=== PATIENT | male | born 1980 | race Caucasian/White ===

== ENCOUNTER 2023-12-06 10:48 | Emergency (ER) | payer MEDICARE, SELFPAY ==
[2023-12-06 10:50] VITALS: BP 131/75
[2023-12-06 11:04] VITALS: BMI 32.6
--- NOTE | 2023-12-06 11:05 | ED.GENMED ---
History of Present Illness
General
Chief Complaint: Flank Pain
Source: patient
Exam Limitations: none
Time Seen by Provider: 12/06/23 10:54
History of Present Illness
History of Present Illness:
43-year-old male presents with left flank pain intermittently over the past several days. There is associated dysuria. He also notes cloudy urine. No fevers chills nausea vomiting. No prior history of kidney stone. No other complaints at this
time
Phy Exam
Physical Exam
Physical Exam:
General: Well-appearing male no acute respiratory distress
HEENT: Normocephalic atraumatic
Heart: Regular rate and rhythm no murmurs
Lungs: Clear no wheeze
Abdomen is soft nontender nondistended but mild left-sided costovertebral angle tenderness
Extremities: No cyanosis
Course
Orders/Labs/Results
Orders:
Orders
12/06/23 11:00
Complete Blood Count/With Diff Urgent
Comprehensive Metabolic Panel Urgent
12/06/23 11:01
CT Abd/pel Without Iv Or Oral Urgent
Comment:
Reason For Exam: left flank pain
12/06/23 12:00
Urinalysis Reflex To Culture Urgent
Date Specimen was Collected: 12/06/23
Time Specimen was Collected: 11:02
Urine Microscopic Reflex Cult Urgent
12/06/23 13:25
CT Abd/Pel (IV only)-DH only Urgent
Reason For Exam: left renal mass
Abnormal Lab Results
12/06/23 12/06/23
11:00 12:00
RBC 4.64 L 10^6/uL
(4.70-6.10)
MPV 10.7 H fL
(7.4-10.4)
BUN 26 H mg/dl
(9-20)
Urine Ketones 2+ A
(Negative)
Urine Bilirubin 1+ A
(Negative)
Urine Urobilinogen 2+ A
(Neg - 1+)
Leukocyte Esterase Rfl Trace A
(Negative)
Urine Bacteria (Reflex) Few A
(Negative)
12/06/23 11:00
12/06/23 11:00
Vital Signs
Initial and Last Documented VS:
Initial Vital Signs
Temp Pulse Resp BP Pulse Ox
98.5 F 65 18 131/75 99
12/06/23 10:50 12/06/23 10:50 12/06/23 10:50 12/06/23 10:50 12/06/23 10:50
Last Documented Vital Signs
Temp Pulse Resp BP Pulse Ox
98.5 F 65 18 115/63 97
12/06/23 10:50 12/06/23 10:50 12/06/23 10:50 12/06/23 16:00 12/06/23 16:00
MDM/Problems Addressed
Differential Diagnosis Includes:
Left flank pain. Consider renal colic versus pyelonephritis musculoskeletal flank pain versus UTI
Patient is fairly healthy otherwise he does have history of gastric bypass. Will order labs and urinalysis. CT of abdomen pending as well
Considered IV pain medicine however patient appears comfortable. Held off on medicating at this point
*Critical Care Note
Total Time (30-74mins, 75-104mins- exclusive of procedures): Not Applicable
Update Note
Update Note:
Initial CT shows left renal mass suspicious for renal cell carcinoma. Spoke with urology who recommended CT of the abdomen pelvis with and without IV contrast for further detail. Workup furthermore would be proceeded as an outpatient. Patient
made aware of these findings. Waiting official report for CT with IV contrast
ED Attending Note
-
Portions of this chart may have been created with voice recognition software.� Occasional wrong word or��sound alike� substitutions may have occurred due to the inherent limitations of voice recognition software.
Discharge Plan
Departure
Patient Disposition: Home (Routine Discharge)
Date of Disposition: 12/06/23
Time of Disposition: 16:16
Patient with high blood pressure during this ER visit?: No
Discharge Problem:
Left renal mass
Referrals:
Alfonso Archer MD [Active] -
Osman Rocha MD [Family Provider] -
Activity Restrictions/Additional Instructions:
You may use ibuprofen or Tylenol for pain. Drink plenty of fluids. Please follow-up with urology for next available appointment for further evaluation
Interventions
Interventions:
*Risk Screen - Suicide Last Done: 12/06/23 10:50
*General Assessment Last Done: 12/06/23 10:50
*Neglect/Abuse Screening Last Done: 12/06/23 10:50
ED- Fall Risk Assessment Last Done: 12/06/23 11:04
*ED COVID-19 Vaccine History Last Done: 12/06/23 10:50
*Nursing Disposition Last Done: 12/06/23 16:23
RR-Rlkvhd-Dqryhvsiin Assessment Last Done: 12/06/23 11:04
ED-Male Genitourinary Assessment Last Done: 12/06/23 11:04
Discharge Date and Time
Discharge Date/Time: 12/06/23 16:23
Print Language: K[place]
[2023-12-06 11:25] LABS: % Basophils 0.4 % (0-2); % Eosinophils 2.2 % (0-6); % Immature Granulocytes 0.4 % (0-0.5); % Lymphocytes 25.8 % (20.5-51.1); % Monocytes 5.4 % (1.7-9.3); % Neutrophils 65.8 % (42.2-75.2); Absolute Eosinophils 0.2 10^3/uL (0-0.7); Absolute Lymphocytes 1.8 10^3/uL (1.2-3.4); Absolute Monocytes 0.4 10^3/uL (0.1-0.6); Absolute Neutrophils 4.5 10^3/uL (1.4-6.5); Hematocrit 40.3 % (39.0-52.0); Hemoglobin 14.4 g/dL (13.0-18.0); Mean Corp Hgb Conc. 35.7 g/dL (33.0-37.0); Mean Corpuscular Volume 86.9 fL (80.0-94.0); Mean Platelet Volume 10.7 fL (7.4-10.4); Nucleated Red Blood Cells % 0 % (-); Platelet Count 163 10^3/uL (130-400); Red Blood Cell Count 4.64 10^6/uL (4.70-6.10); Red Cell Dist. Width 12.5 % (11.5-14.5); White Blood Cell Count 6.8 10^3/uL (4.8-10.8)
[2023-12-06 11:34] LABS: ALT (SGPT) 17 U/L (0-50); AST (SGOT) 22 U/L (17-59); Alkaline Phosphatase 52 U/L (38-126); Blood Urea Nitrogen 26 mg/dl (9-20); Calcium 9.5 mg/dl (8.4-10.2); Carbon Dioxide 28 mmol/L (22-30); Chloride 105 mmol/L (98-107); Estimated Creatinine Clearance 122 ml/min; Glucose 82 mg/dl (70-99); Potassium 4.3 mmol/L (3.5-5.1); Sodium 141 mmol/L (135-145); Total Bilirubin 1.2 mg/dl (0.2-1.3); Total Protein 6.3 g/dl (6.3-8.2); eGFR > 60.00
[2023-12-06 12:14] LABS: Urine Albumin Trace (Neg - Trace); Urine Bilirubin 1+ (Negative); Urine Character Clear (Clear); Urine Color Yellow; Urine Glucose Negative (Negative); Urine Ketone 2+ (Negative); Urine Leukocyte Trace (Negative); Urine Nitrite Negative (Negative); Urine Occult Blood Negative (Negative); Urine Urobilinogen 2+ (Neg - 1+)
[2023-12-06 12:24] LABS: Urine Mucus Moderate; Urine Squamous Cell 0-2 /LPF (Few)
[2023-12-06 12:25] LABS: Urine Bacteria Few (Negative); Urine Red Blood Cell 0-2 /HPF (0-2); Urine White Cell 0-2 /HPF (0-5)
[2023-12-06 13:17] VITALS: BP 112/73
[2023-12-06 15:20] VITALS: BP 114/74
[2023-12-06 16:00] VITALS: BP 115/63
== END 2023-12-06 16:23 | disposition home or self-care (01) ==
LOC: EMR 10:48
PROVIDERS: Physician Assistant; EMERGENCY PHYSICIAN Emergency Medicine; FAMILY PHYSICIAN Internal Medicine
DX: N28.89 Other specified disorders of kidney and ureter (principal)
CPT/HCPCS: 99285; 74176; 74177; 80053; 81003; 81015; 85025; Q9967

== ENCOUNTER 2024-01-16 06:12 | Day surgery (SDC) | payer OTHER, SELFPAY ==
[2024-01-13 08:31] VITALS: BMI 32.7
[2024-01-13 10:44] LABS: Hemoglobin 13.5 g/dL (13.0-18.0); Mean Corp Hgb Conc. 35.5 g/dL (33.0-37.0); Mean Corpuscular Volume 87.2 fL (80.0-94.0); Mean Platelet Volume 10.9 fL (7.4-10.4); Platelet Count 166 10^3/uL (130-400); Red Blood Cell Count 4.36 10^6/uL (4.70-6.10); White Blood Cell Count 6.6 10^3/uL (4.8-10.8)
[2024-01-13 11:15] LABS: Blood Urea Nitrogen 27 mg/dl (9-20); Calcium 9.2 mg/dl (8.4-10.2); Carbon Dioxide 27 mmol/L (22-30); Chloride 106 mmol/L (98-107); Estimated Creatinine Clearance > 125 ml/min; Glucose 76 mg/dl (70-99); Potassium 4.1 mmol/L (3.5-5.1); Sodium 143 mmol/L (135-145); eGFR > 60.00
[2024-01-16] VITALS (15 sets, daily range): BP systolic 98–139; BP diastolic 49–80; BMI 32.7
[2024-01-16] MEDS: NORMOSOL-R/PLASMALYTE-A 1000 IV (06:38)
--- NOTE | 2024-01-16 11:27 | W.IMMPOSTOP ---
Surgical Immed Post Op Note
-
Primary Surgeon: Benjaminfer
Assisting Surgeon: none
Pre-op Diagnosis: L renal mass
Post-op Diagnosis: same
Procedure Performed: Robotic L partial nephrectomy
Anesthesia Type: general
Specimen / Cultures: L renal mass, negative frozen margin
Estimated Blood Loss: 30cc
Complications: none
Operative Findings:
[2024-01-16] MEDS: DILAUDID 0.5 MG IV ×2 (11:50→12:04)
[2024-01-16 11:54] LABS: Hematocrit 37.3 % (39.0-52.0); Hemoglobin 13.3 g/dL (13.0-18.0); Mean Corp Hgb Conc. 35.7 g/dL (33.0-37.0); Mean Corpuscular Hgb 30.4 pg (27.0-31.0); Mean Corpuscular Volume 85.2 fL (80.0-94.0); Mean Platelet Volume 10.2 fL (7.4-10.4); Platelet Count 146 10^3/uL (130-400); Red Blood Cell Count 4.38 10^6/uL (4.70-6.10); White Blood Cell Count 13.2 10^3/uL (4.8-10.8)
[2024-01-16 12:29] LABS: Blood Urea Nitrogen 27 mg/dl (9-20); Calcium 8.9 mg/dl (8.4-10.2); Carbon Dioxide 21 mmol/L (22-30); Chloride 107 mmol/L (98-107); Estimated Creatinine Clearance 119 ml/min; Glucose 123 mg/dl (70-99); Potassium 4.3 mmol/L (3.5-5.1); Sodium 143 mmol/L (135-145); eGFR > 60.00
[2024-01-16] MEDS: NSS 1000 IV ×2 (12:55→20:43)
[2024-01-16] MEDS: TYLENOL 650 MG PO (13:10)
--- NOTE | 2024-01-16 13:25 | PTCARENOTE ---
Patient admitted to unit at this time from PACU via stretcher. S/p robotic L partial nephrectomy. 5 lap sites assessed. Stephens draining clear yellow urine. Pain assessed and treated, call hooker within reach.
[2024-01-16] MEDS: SENOKOT 17.2 MG PO (20:32)
[2024-01-17 03:19] VITALS: BP 137/82
[2024-01-17 05:48] LABS: Hematocrit 35.7 % (39.0-52.0); Hemoglobin 12.7 g/dL (13.0-18.0); Mean Corp Hgb Conc. 35.6 g/dL (33.0-37.0); Mean Corpuscular Hgb 31.2 pg (27.0-31.0); Mean Corpuscular Volume 87.7 fL (80.0-94.0); Mean Platelet Volume 11.1 fL (7.4-10.4); Platelet Count 149 10^3/uL (130-400); Red Blood Cell Count 4.07 10^6/uL (4.70-6.10); Red Cell Dist. Width 13.1 % (11.5-14.5); White Blood Cell Count 10.4 10^3/uL (4.8-10.8)
[2024-01-17 06:51] LABS: Blood Urea Nitrogen 23 mg/dl (9-20); Calcium 8.5 mg/dl (8.4-10.2); Carbon Dioxide 21 mmol/L (22-30); Chloride 107 mmol/L (98-107); Estimated Creatinine Clearance 119 ml/min; Glucose 79 mg/dl (70-99); Potassium 3.5 mmol/L (3.5-5.1); Sodium 144 mmol/L (135-145); eGFR > 60.00
--- NOTE | 2024-01-17 07:53 | W.PN.URO.CBU ---
Today's Communication / Plan
-
Discharge
Assessment / Plan
-
43M POD 1 s/p robotic L partial nephrectomy
- OOB/ambulate
- IS
- Stephens out
- reg diet
- AM labs stable
- Discharge today
Diagnosis
-
Date of Service: January 17, 2024
-
Patient Diagnosis:
L renal mass
Post Op Day:
Subjective
-
tolerating diet
ambulating
no n/v
no cp/sob
Objective
-
Vital Signs
Temp Pulse Resp BP Pulse Ox
98.3 F 64 22 137/82 99
01/17/24 03:19 01/17/24 03:19 01/17/24 03:19 01/17/24 03:19 01/17/24 03:19
Intake and Output
01/16/24 01/17/24 01/18/24
06:59 06:59 06:59
Intake Total 3030 / 3030
Output Total 855 / 855
Balance 2175 / 2175
Intake:
Oral fluids 480 / 480
IV fluids (Total) 2550 / 2550
Normosol 550 / 550
Output:
Urine, Stephens 825 / 825
Urine, Voided 30 / 30
Laboratory Results
01/17/24 04:44
01/17/24 04:44
Physical Exam
-
General - well developed, well nourished, no acute distress
Chest - clear
Abdomen - soft, non-tender, positive bowel sounds, no CVAT, no incisional pain or distention
Skin - warm & dry with no rash
Neuro - AOx3, no motor deficits
Incision - clean, dry
Dressing - clean, dry, intact
[2024-01-17 08:30] VITALS: BP 147/90
[2024-01-17] MEDS: AFLURIA (36 mos+) 2024-2025 FORMULA 0.5 ML IM (08:56)
[2024-01-17] MEDS: PROTONIX 40 MG PO (08:58)
[2024-01-17] MEDS: SENOKOT 17.2 MG PO (08:58)
--- NOTE | 2024-01-17 10:58 | CM ---
Met with pt and his at bedside
Pt reports he lives with his in a 2 story home; 1 step to enter, 10 steps to 2nd fl
Independent, employed FT, drives
DME - none
SNF/HH - no past hx
Has ride home with
Confirmed PCP - Osman Rocha, Pharm - [facility]
Plan - Anticipate home no needs
== END 2024-01-17 10:18 | disposition home or self-care (01) ==
LOC: SDS 06:12
PROVIDERS: ATTENDING PHYSICIAN Urology; FAMILY PHYSICIAN Internal Medicine
DX: N28.89 Other specified disorders of kidney and ureter (principal); N11.8 Other chronic tubulo-interstitial nephritis; C64.2 Malignant neoplasm of left kidney, except renal pelvis
CPT/HCPCS: 50543; 88305; 88307; 88332; 36415; 80048; 85027; 86850; 86900; 86901; 88331; 90686; 93005; G0008

== ENCOUNTER → 2024-07-31 11:33 | Outpatient (REF) | payer BC, OTHER, SELFPAY ==
[2024-07-31 13:15] LABS: Blood Urea Nitrogen 29 mg/dl (9-20); Calcium 9.5 mg/dl (8.4-10.2); Carbon Dioxide 27 mmol/L (22-30); Chloride 108 mmol/L (98-107); Glucose 85 mg/dl (70-99); Potassium 4.2 mmol/L (3.5-5.1); Sodium 143 mmol/L (135-145); eGFR 59.24
== END ==
LOC: REG 11:33
PROVIDERS: ATTENDING PHYSICIAN Urology; OTHER PHYSICIAN Surgery
DX: C64.2 Malignant neoplasm of left kidney, except renal pelvis (principal)
CPT/HCPCS: 36415; 71270; 74170; 80048; Q9967